=== PATIENT | female | born 1975 | race African-American/Black ===

== ENCOUNTER 2019-12-24 13:46 | Emergency (ER) | payer MEDICARE, MEDICAID ==
[~2019-12-24] VITALS: Ht 170.2 cm; Wt 64.0 kg
[2019-12-24] MEDS ORDERED: MORPHINE SULFATE 10 MG/ML CPJ IM ONE (14:15)
[2019-12-24] MEDS ORDERED: ONDANSETRON HCL 4MG/2ML INJ IV ONE (17:45)
[2019-12-24] MEDS ORDERED: LORAZEPAM 2MG/ML CPJ IV ONE (17:45)
[2019-12-24] MEDS ORDERED: KETAMINE HCL 50 MG/ML 10ML IV ONE (17:45)
[2019-12-24] MEDS ORDERED: ONDANSETRON 4MG ODT PO ONE (23:15)
[2019-12-25 03:52] VITALS: BP 144/68
== END 2019-12-25 03:53 | disposition home or self-care (01) ==
LOC: EDBD 13:46 → ER 14:00
DX: S52.591A Other fractures of lower end of right radius, initial encounter for closed fracture (principal); S52.601A Unspecified fracture of lower end of right ulna, initial encounter for closed fracture; Z88.0 Allergy status to penicillin; W10.8XXA Fall (on) (from) other stairs and steps, initial encounter; Y93.89 Activity, other specified; Y92.89 Other specified places as the place of occurrence of the external cause
CPT/HCPCS: 25605; 73030; 73080; 73090; 73110; 93005; 96372; 96374; 96375; 99152; 99285; J2060; J2270; J2405; J3490; Q0162